=== PATIENT | female | born 1965 | race African-American/Black ===

== ENCOUNTER 2016-12-26 18:52 | Emergency (ER) | payer BC ==
[~2016-12-26] VITALS: Ht 167.6 cm; Wt 76.0 kg
[~2016-12-26 18:52] MED LIST: ATENOLOL; DESIPRAMINE; OMEPRAZOLE
[2016-12-26] MEDS ORDERED: BACITRACIN ZINC OINT UDPKT TOP ONE (20:30)
[2016-12-26] MEDS ORDERED: HYDROCODONE/ACETAMINOPHEN 5/325MG TABLET PO ONE (20:30)
[2016-12-26] MEDS ORDERED: TETANUS, DIPHTHERIA, PERTUSSIS VAC/PF 0.5ML (>7YR OLD) IM ONE (20:30)
[2016-12-26 21:20] VITALS: BP 150/89
== END 2016-12-26 21:35 | disposition home or self-care (01) ==
LOC: ER 20:27
DX: S61.412A Laceration without foreign body of left hand, initial encounter (principal); W26.0XXA Contact with knife, initial encounter; Y93.89 Activity, other specified; Y92.833 Campsite as the place of occurrence of the external cause; I10 Essential (primary) hypertension; Z23 Encounter for immunization; Z90.710 Acquired absence of both cervix and uterus; Z86.59 Personal history of other mental and behavioral disorders
CPT/HCPCS: 90471; 90715; 99283; Z7610